=== PATIENT | female | born 1980 | race Caucasian/White ===

== ENCOUNTER 2019-02-17 08:20 | Outpatient (CLI) | payer OTHER ==
--- NOTE | 2019-02-17 09:46 | Diagnostic Imaging Report ---
<p>Your browser does not support iframes.</p> LISETTE ARRINGTON [facility] [address] [facility].[address] [address] Report Submission Date: Feb 17, 2019 9:21:05 AM CDT Patient Study Name: JONATHAN ESCOBAR Date: Feb 17, 2019 8:32:19 AM CDT Modality Type: US Gender: F Description: US ABDOMEN LIMITED : 78 Institution: [facility] Physician: LISETTE ARRINGTON Examination: Ultrasound gallbladder History: RUQ PAIN Findings: Sonographic evaluation of the right upper quadrant demonstrates the gallbladder with echogenic structures along the gallbladder wall without posterior shadowing. Gallbladder wall measures 2.2mm. Common bile duct measures 3.2 mm. No intrahepatic biliary dilation. Liver demonstrates normal homogeneous echogenicity. No mass or cyst. Normal flow on color analysis. Normal portal vein Doppler waveform. Right kidney measures 9.0 cm in length. No cortical mass or cyst. No hydronephrosis. Pancreatic region without gross irregularity. Impression: Likely gallbladder polyps. No definite gallstone or obstruction. Electronically signed on Feb 17, 2019 9:21:05 AM CDT by: Wm ODELL
== END 2019-02-17 08:23 ==
LOC: RAD 08:20
PROVIDERS: ATTEND Nurse Practitioner Family
DX: R10.11 Right upper quadrant pain (principal)
CPT/HCPCS: 76705

== ENCOUNTER 2019-02-25 11:59 | Outpatient (CLI) | payer OTHER ==
[2019-02-25 12:26] LABS: BASOPHILS % 0.5 % (0.0-1.5); EOSINOPHILS % 2.6 % (0.0-6.8); MEAN CORPUSCULAR HEMOGLOBIN 31.3 pg (28.0-34.0); MONOCYTES % 6.8 % (0.0-11.0); NEUTROPHILS # 4.6 # k/uL (1.4-7.7)
--- NOTE | 2019-02-25 12:35 | History and Physical Report ---
History of Present Illnes - History of Present Illness Reason for Visit: PreOp Assessment (Cholecystectomy) History of Present Illness: Mrs. Galvin is a 38-year-old white female who presents today for pre-op assessment with labs and EKG. She presents with RUQ pain that started approximately 2 months ago with worsening of symptoms. Pain increases after eating certain foods- she has also had episodes of nausea. She states her BMs use to be normal and regular- she now has occasional loose stools. She has had heartburn off/on over the last year with halitosis in the morning. - Past Medical History Pulmonary: Pulmonary embolus (11/18/01) SCRIPT MANAGER: Migraine Gastrointestinal: GERD (x 1 year off/on) Grav: 1 Para: 1 - Past Surgical History Past Surgical History: (11/13/01), Other (Breast augmentation 2005/ reconstruction 2006), Tonsillectomy (with adenoids 1984), Other (Endometrial Ablation 2007) - Past Family History Mother Family History: Hyperlipidemia, Hypertension Father Family History: Hyperlipidemia, Hypertension - Past Social History Smoke: <1 pack per day (4-5 cigs per day; last smoked 10/27/18) Occupation: Film Maker Alcohol: Rare Drugs: None Lives: With Family Domestic Violence: Negative - Health Maintenance Health Maintenance: Influenza Vaccine Influenza Vaccine: Current for this Influenza Season Pneumonia Vaccine: No Resuscitation Status: Full Code Review of Systems - Review of Systems Constitutional: negative: Fever, Chills Eyes: negative: pain ENT: negative: Nose Pain, Throat Pain Respiratory: negative: Shortness of Breath Cardiovascular: negative: Chest Pain Gastrointestinal: Nausea, Abdominal Pain (RUQ), Diarrhea (occasional). negative: Vomiting Genitourinary: negative: Dysuria Musculoskeletal: negative: Back Pain Skin: negative: Rash Neurological: negative: Weakness - Medications/Allergies Allergies/Adverse Reactions: Allergies Allergy/AdvReac Type Severity Reaction Status Date / Time cephalexin monohydrate AdvReac Unknown Unverified 04/27/15 11:52 [From Keflex] Exam - Exam General: Alert, Oriented to Person, Oriented to Place, Oriented to Time, Cooperative, No acute distress, Average Body Habits HEENT: PERRLA, Mouth Mucous membr. moist/[place]: Normal Range of Motion Carotids: No bruit Lungs: Clear to auscultation, Normal air movement, Speaks full Sentences Cardiovascular: Regular rate, Normal S1, Normal S2 Peripheral Edema: None Abdomen: Normal bowel sounds, Soft Integumentary: Normal, [place], Warm, Dry Extremities: No edema, Normal pulses Neurological: Normal gait, Normal speech, Strength Equal Bilat, Normal tone, Sensation intact Psych/Mental Status: Mental status NL, Mood NL, Appropriate Affect, Intact Judgment - Laboratory Results Laboratory Results: Laboratory Results 02/25/19 12:20 WBC 8.40 RBC 4.31 Hgb 13.5 Hct 40.0 MCV 93.0 MCH 31.3 MCHC 33.7 RDW 13.2 Plt Count 300 Neut % (Auto) 54.1 Lymph % (Auto) 36.0 [place] % (Auto) 6.8 Eos % (Auto) 2.6 Baso % (Auto) 0.5 Neut # (Auto) 4.6 Lymph # (Auto) 3.0 [place] # (Auto) 0.6 Eos # (Auto) 0.2 Baso # (Auto) 0.0 Assessment/Plan - Assessment/Plan (1) Pre-op exam Status: Acute Current Visit: Yes Plan: Patient will get labs today with UA, Urine HCG (ablation), and EKG VTE Assessment - RISK FACTOR SCORE VTE RISK FACTOR SCORES: AGE 40-60 YEARS
[2019-02-25 12:55] LABS: eGFR (Non-African) > 60
[2019-02-25 13:37] LABS: APPEARANCE,URINE CLEAR (CLEAR); COLOR,URINE YELLOW (YELLOW); OCCULT BLOOD,URINE NEGATIVE (NEGATIVE); PH URINE 5.5 (5.0 - 8.0); UROBILINOGEN URINE 0.2 Eu (0.2-1.0)
== END 2019-02-25 12:00 ==
LOC: OUT 11:59
PROVIDERS: ATTEND Nurse Practitioner Family
DX: Z01.818 Encounter for other preprocedural examination (principal); K21.9 Gastro-esophageal reflux disease without esophagitis; G43.909 Migraine, unspecified, not intractable, without status migrainosus; Z87.891 Personal history of nicotine dependence; Z86.711 Personal history of pulmonary embolism
CPT/HCPCS: 36415; 80053; 81002; 81025; 85025

== ENCOUNTER 2019-03-18 06:28 | Day surgery (SDC) | payer OTHER ==
[2019-03-18] MEDS ORDERED: MEPERIDINE (NF) 100 MG/ML INJ ONE (09:00)
[2019-03-18] MEDS ORDERED: HYDROmorphone HCL/PF 1 MG/ML VIAL ONE (09:07)
[2019-03-18] MEDS ORDERED: PROMETHAZINE HCL 25 MG/ML VIAL ONE (10:08)
[2019-03-18] MEDS ORDERED: ONDANSETRON HCL/PF 4 MG/ 2ML VIAL ONE (10:10)
== END 2019-03-18 11:20 | disposition home or self-care (01) ==
LOC: OPSURG 06:28
PROVIDERS: ATTEND Surgery
DX: K82.4 Cholesterolosis of gallbladder (principal); K82.8 Other specified diseases of gallbladder
CPT/HCPCS: J1170; J2175; J2405; J2550

== ENCOUNTER 2019-04-12 12:45 | Outpatient (CLI) | payer OTHER ==
--- NOTE | 2019-06-10 09:22 | Diagnostic Imaging Report ---
LISETTE ARRINGTON [facility] [address] [facility] [address] [place] [address]. [id number] Report Submission Date: Apr 12, 2019 1:30:02 PM CDT Patient Study Name: JONATHAN ESCOBAR Date: Apr 12, 2019 12:58:15 PM CDT Modality Type: CT\SR Gender: F Description: CT ABD/PELV W/CONTRAST : 78 Institution: [facility] Physician: LISETTE ARRINGTON Exam: CT abdomen pelvis with contrast. History: Pain after cholecystectomy. Axial images through the abdomen and pelvis after IV infusion of 94 cc Omnipaque 350 is submitted along with sagittal and coronal reformatted images. The visualized lower lung khan are clear. No free intraperitoneal air is identified. Surgical clips in the gallbladder fossa indicate previous cholecystectomy. The liver, spleen and visualized pancreas are normal attenuation and enhancement without space-occupying lesion. The adrenal glands are normal configuration. The abdominal aorta is of normal caliber. No periaortic lymphadenopathy is identified. Both kidneys are normal attenuation and enhancement without hydronephrosis or hydroureter is identified. The urinary bladder is distended without intrinsic filling defect. The uterus is anteverted and deviated slightly to the right of midline. A complex cystic structure in the right adnexa measures 4.3 cm in appears to be associated with fluid, fatty and calcific components which may indicate a dermoid cyst. The small bowel is of normal caliber. Air and stool is seen throughout the large intestine. No inflammatory changes in the mesentery or ascites is identified. No bony abnormalities are identified. Impression: Previous cholecystectomy. No hydronephrosis or hydroureter. Complex cystic structure in the right adnexa could represent dermoid cyst. Nonspecific bowel gas pattern. No inflammatory changes in the mesentery or ascites is identified. Electronically signed on Apr 12, 2019 1:30:02 PM CDT by: Artemio ODELL
== END 2019-04-12 12:50 | disposition home or self-care (01) ==
LOC: RAD 12:45
PROVIDERS: ATTEND Family Medicine
DX: R10.9 Unspecified abdominal pain (principal)
CPT/HCPCS: 74177; Q9967

== ENCOUNTER 2019-08-12 16:27 | Outpatient (CLI) | payer OTHER | END 2019-08-12 16:30 | LOC: LABRHC 16:27 | PROVIDERS: ATTEND Nurse Practitioner Family | DX: N39.0 Urinary tract infection, site not specified (principal) | CPT/HCPCS: 87086; 87186 ==